=== PATIENT | male | born 1950 | race Caucasian/White ===

== ENCOUNTER 2023-08-08 16:07 | Emergency (ER) | payer OTHER ==
[~2023-08-08] VITALS: Ht 182.9 cm; Wt 95.5 kg
[2023-08-08 16:19] VITALS: TEMP 97.9
[2023-08-08] MEDS ORDERED: TRAM50TA5 PO (18:16)
[2023-08-08 18:20] VITALS: BP 146/64; PULSE 68; RESP 16
== END 2023-08-08 18:19 | disposition home or self-care (01) ==
LOC: EMS 16:07
DX: S82.892A Other fracture of left lower leg, initial encounter for closed fracture (principal); Z98.890 Other specified postprocedural states; X50.9XXA Other and unspecified overexertion or strenuous movements or postures, initial encounter; Y93.89 Activity, other specified; Y92.89 Other specified places as the place of occurrence of the external cause; Y99.0 Civilian activity done for income or pay
CPT/HCPCS: 99284

== ENCOUNTER 2023-08-09 17:18 | Emergency (ER) | payer MEDICARE, OTHER ==
[~2023-08-09] VITALS: Ht 190.5 cm; Wt 109.1 kg
[~2023-08-09 17:18] MED LIST: TRAM50TA5 PO
[2023-08-09 17:21] VITALS: TEMP 97.9
[2023-08-09 22:32] VITALS: BP 144/90; PULSE 70; RESP 18
== END 2023-08-09 22:45 | disposition home or self-care (01) ==
LOC: EMS 19:12
DX: M79.662 Pain in left lower leg (principal)
CPT/HCPCS: 93971; 99284; Z7502